=== PATIENT | female | born 1970 | race Caucasian/White ===

== ENCOUNTER 2021-06-06 14:32 | Emergency (ER) | payer BC ==
[~2021-06-06] VITALS: Ht 172.7 cm; Wt 109.8 kg
[2021-06-06 15:14] LABS: APPEARANCE,URINE Clear (CLEAR); BILIRUBIN,URINE Negative (NEGATIVE); COLOR,URINE Yellow (YELLOW); GLUCOSE, URINE (UA) >=1000 mg/dL (NEGATIVE); KETONES,URINE Negative (NEGATIVE); LEUKOCYTE ESTERASE ,URINE Small (NEGATIVE); NITRATE,URINE Negative (NEGATIVE); OCCULT BLOOD,URINE Negative (NEGATIVE); PROTEIN,URINE Negative (NEGATIVE); UROBILINOGEN,URINE 0.2 mg/dL (0.2-1.0)
[2021-06-06 15:29] LABS: RBC,URINE 0-1 /HPF (0-1)
[2021-06-06 15:30] LABS: BACTERIA,URINE Few /HPF (None Seen); SQUAMOUS EPITHELIAL CELL,UR Few /HPF (0-2); TRANSITIONAL EPI CELLS,URINE Rare /HPF (None Seen)
[2021-06-06 15:32] LABS: MUCUS,URINE Rare LPF (None Seen)
[2021-06-06 15:38] LABS: CREATININE 1.2 mg/dL (0.5-1.5); POTASSIUM 3.7 mmol/L (3.5-5.1)
[2021-06-06 15:46] LABS: ALBUMIN 4.1 g/dL (3.5-5.0); BILIRUBIN,TOTAL 0.7 mg/dL (0.2-1.0); TOTAL PROTEIN, SERUM 8.1 g/dL (6.0-8.3)
[2021-06-06 16:28] LABS: BASOPHILS % (AUTO) 0.8 % (0.0-5.0); LYMPHOCYTES % (AUTO) 22.3 % (21.0-51.0); MEAN CORPUSCULAR HEMOGLOBIN 23.9 pg (27.0-33.0); MEAN CORPUSCULAR HGB CONC 30.3 g/dL (32.0-36.0); MEAN CORPUSCULAR VOLUME 79.2 fL (79-99); NEUTROPHILS % (AUTO) 70.6 % (40.0-77.0); PLATELET COUNT (AUTO) 597 K/uL (130-400); RED BLOOD CELL COUNT(AUTO) 5.47 MIL/uL (4.00-5.50); WHITE BLOOD COUNT (AUTO) 14.5 K/uL (4.8-10.8)
[2021-06-06] MEDS ORDERED: 0.9%NACL 1000ML 1,000 ML IV ONE (17:00)
[2021-06-06 18:09] VITALS: BP 126/66
== END 2021-06-06 18:10 | disposition home or self-care (01) ==
LOC: EDH 14:32
DX: E11.65 Type 2 diabetes mellitus with hyperglycemia (principal); E86.0 Dehydration; R07.89 Other chest pain; R06.02 Shortness of breath; Z20.822 Contact with and (suspected) exposure to COVID-19; Z98.890 Other specified postprocedural states
CPT/HCPCS: 36415; 71045; 80053; 81001; 84484; 85025; 87088; 87635; 93005; 99284; C9803

== ENCOUNTER 2022-06-30 07:24 | Emergency (ER) | payer BC, OTHER ==
[~2022-06-30] VITALS: Ht 172.7 cm; Wt 112.5 kg
[2022-06-30] MEDS ORDERED: ONDANSETRON 4MG INJ IVP ONE (08:00)
[2022-06-30] MEDS ORDERED: KETOROLAC 30MG VIAL (30MG/ML) IVP ONE (08:00)
[2022-06-30 08:06] VITALS: BP 165/71
[2022-06-30 08:22] LABS: CREATININE 1.3 mg/dL (0.5-1.5); POTASSIUM 4.9 mmol/L (3.5-5.1)
[2022-06-30 08:24] LABS: BASOPHILS % (AUTO) 0.7 % (0.0-5.0); EOSINOPHILS % (AUTO) 2.9 % (0.0-8.0); HEMATOCRIT 38.1 % (36-48); LYMPHOCYTES % (AUTO) 29.4 % (21.0-51.0); MEAN CORPUSCULAR HGB CONC 31.5 g/dL (32.0-36.0); MEAN CORPUSCULAR VOLUME 82.5 fL (79-99); NEUTROPHILS % (AUTO) 61.5 % (40.0-77.0); PLATELET COUNT (AUTO) 375 K/uL (130-400); RED BLOOD CELL COUNT(AUTO) 4.62 MIL/uL (4.00-5.50); RED CELL DISTRIBUTION WIDTH 14.6 % (11.0-15.5); WHITE BLOOD COUNT (AUTO) 12.1 K/uL (4.8-10.8)
[2022-06-30 08:27] LABS: ALBUMIN 3.7 g/dL (3.5-5.0); TOTAL PROTEIN, SERUM 7.2 g/dL (6.0-8.3)
[2022-06-30] MEDS ORDERED: OMEP40CA21 PO (09:34)
[2022-06-30] MEDS ORDERED: ONDA-104 PO (09:34)
[2022-06-30] MEDS ORDERED: IBUP-1493 PO (09:34)
== END 2022-06-30 09:59 | disposition home or self-care (01) ==
LOC: EDH 07:24
DX: S09.90XA Unspecified injury of head, initial encounter (principal); K80.20 Calculus of gallbladder without cholecystitis without obstruction; R11.0 Nausea; I10 Essential (primary) hypertension; E78.00 Pure hypercholesterolemia, unspecified; E10.8 Type 1 diabetes mellitus with unspecified complications; Z90.89 Acquired absence of other organs; W01.0XXA Fall on same level from slipping, tripping and stumbling without subsequent striking against object, initial encounter; Y93.89 Activity, other specified; Y92.89 Other specified places as the place of occurrence of the external cause; Y99.8 Other external cause status
CPT/HCPCS: 99285; 70450; 96374; 76705; 71045; 96375; 84484; 80053; 85025; 36415; 72125; 93005; J2405; J1885

== ENCOUNTER 2022-09-16 06:53 | Day surgery (SDC) | payer OTHER ==
[2022-09-12 10:19] LABS: BASOPHILS % (AUTO) 0.6 % (0.0-5.0); EOSINOPHILS % (AUTO) 2.9 % (0.0-8.0); HEMATOCRIT 40.3 % (36-48); LYMPHOCYTES % (AUTO) 27.2 % (21.0-51.0); MEAN CORPUSCULAR HEMOGLOBIN 25.7 pg (27.0-33.0); MEAN CORPUSCULAR VOLUME 82.8 fL (79-99); MONOCYTES % (AUTO) 5.9 % (3.0-13.0); PLATELET COUNT (AUTO) 425 K/uL (130-400); RED BLOOD CELL COUNT(AUTO) 4.87 MIL/uL (4.00-5.50); RED CELL DISTRIBUTION WIDTH 13.8 % (11.0-15.5)
[2022-09-12 10:55] VITALS: BP 125/66
[2022-09-16] VITALS (21 sets, daily range): BP systolic 14–153; BP diastolic 58–81
[~2022-09-16] VITALS: Ht 177.8 cm; Wt 113.1 kg
[~2022-09-16 06:53] MED LIST: ALBOZ PO; ASPI-1443 PO; ATEN25TA PO; ATOR20TA65 PO; DULO60CA64 PO; GLIP5TAB11 PO; INSU100V12 SQ; LEVO100C4 PO; LOSA50TA64 PO; MAGN400C PO; METF-446 PO; PREG75CA75 PO; VITAMIN B12 PO; VITAMIN D PO
[2022-09-16] MEDS ORDERED: CEFAZOLIN SODIUM 1 GM VIAL ONE (07:04)
[2022-09-16] MEDS ORDERED: 0.9%NACL 1000ML 1,000 ML IV ONE (07:04)
[2022-09-16] MEDS ORDERED: PROPOFOL 10 MG/ML 20ML VIAL IV ONE ×2 (07:19→07:44)
[2022-09-16] MEDS ORDERED: GLYCOPYRROLATE 1 MG/5 ML SYRINGE ONE (07:19)
[2022-09-16] MEDS ORDERED: SUCCINYLCHOLINE 200MG/10ML SYR ONE ×2 (07:19→08:45)
[2022-09-16] MEDS ORDERED: LIDOCAINE PF 100MG/5ML (2%) SYRINGE 5ML ONE (07:19)
[2022-09-16] MEDS ORDERED: DEXAMETHASONE SOD PHOSPHATE 10MG/ML 1ML VIAL ONE (07:19)
[2022-09-16] MEDS ORDERED: ROCURONIUM 10MG/1ML SYR 10 MG/ML ML ONE ×2 (07:20→08:45)
[2022-09-16] MEDS ORDERED: MIDAZOLAM HCL 1 MG/ML 2ML VIAL ONE (07:20)
[2022-09-16] MEDS ORDERED: ONDANSETRON 4MG INJ ONE ×3 (07:20→10:29)
[2022-09-16] MEDS ORDERED: FENTANYL CITRATE PF 50 MCG/1 ML 2ML VIAL ONE ×2 (07:20→09:06)
[2022-09-16] MEDS ORDERED: NEOSTIGMINE 5MG/5ML SYR IV ONE (07:20)
[2022-09-16] MEDS ORDERED: BUPIVACAINE/PF 0.5% 10ML VIAL ONE (07:39)
[2022-09-16] MEDS ORDERED: BUPIVACAINE/PF 0.5% 30ML VIAL ONE (07:39)
[2022-09-16] MEDS ORDERED: INDOCYANINE GREEN 25 MG VIAL IJ ONE (08:17)
[2022-09-16] MEDS ORDERED: CEFAZOLIN SODIUM 3 GM VIAL IVPB ONE (08:41)
[2022-09-16] MEDS ORDERED: BUPIVACAINE/PF 0.5% 30ML VIAL INJ ONE (08:43)
[2022-09-16] MEDS ORDERED: METOPROLOL TARTRATE 1 MG/ML 5ML VIAL IV ONE (09:11)
[2022-09-16] MEDS ORDERED: ESMOLOL HCL 10 MG/ML 10 ML VIAL ONE (09:11)
[2022-09-16] MEDS ORDERED: SUGAMMADEX SODIUM 200 MG/2 ML VIAL IV ONE (09:26)
[2022-09-16] MEDS ORDERED: MEPERIDINE-PF 25 MG/ML SYG ONE ×2 (10:29→10:36)
[2022-09-16] MEDS ORDERED: KETOROLAC 30MG VIAL (30MG/ML) ONE (10:30)
[2022-09-16] MEDS ORDERED: IBUPROFEN 800 MG TAB ONE (11:42)
== END 2022-09-16 13:05 | disposition home or self-care (01) ==
LOC: DAH 06:53
PROVIDERS: ATTEND Surgery
DX: K80.10 Calculus of gallbladder with chronic cholecystitis without obstruction (principal); Z20.822 Contact with and (suspected) exposure to COVID-19; K82.8 Other specified diseases of gallbladder; I10 Essential (primary) hypertension; E11.9 Type 2 diabetes mellitus without complications; E89.0 Postprocedural hypothyroidism; Z98.890 Other specified postprocedural states; Z82.49 Family history of ischemic heart disease and other diseases of the circulatory system; Z83.3 Family history of diabetes mellitus; Z80.9 Family history of malignant neoplasm, unspecified; Z88.8 Allergy status to other drugs, medicaments and biological substances
CPT/HCPCS: 47562; S2900; 36415; 82948; 84703; 85025; 87426; 93005; J0330; J0690; J1100; J1885; J2001; J2175; J2250; J2405; J2704; J2710; J3010; J3490; J7030

== ENCOUNTER 2022-12-31 15:21 | Observation (INO) | payer OTHER ==
[~2022-12-31] VITALS: Ht 172.7 cm; Wt 106.6 kg
[2022-12-31 16:57] LABS: BASOPHILS # (AUTO) 0.08 K/uL (0.00-0.20); BASOPHILS % (AUTO) 0.8 % (0.0-5.0); EOSINOPHILS # (AUTO) 0.31 K/uL (0.00-0.70); EOSINOPHILS % (AUTO) 3.1 % (0.0-8.0); HEMATOCRIT 36.6 % (36-48); IMMATURE GRANULOCYTE ABSOLUTE 0.06 K/uL (0-1); LYMPHOCYTES # (AUTO) 2.7 K/uL (1.0-4.8); LYMPHOCYTES % (AUTO) 27.4 % (21.0-51.0); MEAN CORPUSCULAR HEMOGLOBIN 25.4 pg (27.0-33.0); MEAN CORPUSCULAR HGB CONC 30.9 g/dL (32.0-36.0); MEAN CORPUSCULAR VOLUME 82.2 fL (79-99); MONOCYTES # (AUTO) 0.5 K/uL (0.1-1.0); MONOCYTES % (AUTO) 5.2 % (3.0-13.0); NEUTROPHILS # (AUTO) 6.2 K/uL (1.8-7.7); NEUTROPHILS % (AUTO) 62.9 % (40.0-77.0); PLATELET COUNT (AUTO) 341 K/uL (130-400); RED BLOOD CELL COUNT(AUTO) 4.45 MIL/uL (4.00-5.50); RED CELL DISTRIBUTION WIDTH 14.4 % (11.0-15.5); WHITE BLOOD COUNT (AUTO) 9.9 K/uL (4.8-10.8)
[2022-12-31 16:59] LABS: APPEARANCE,URINE CLEAR (CLEAR); BILIRUBIN,URINE NEGATIVE (NEGATIVE); COLOR,URINE YELLOW (YELLOW); GLUCOSE, URINE (UA) 50 mg/dL (NEGATIVE); KETONES,URINE NEGATIVE (NEGATIVE); LEUKOCYTE ESTERASE ,URINE 250 Leu/uL (NEGATIVE); NITRATE,URINE NEGATIVE (NEGATIVE); OCCULT BLOOD,URINE NEGATIVE (NEGATIVE); PROTEIN,URINE NEGATIVE (NEGATIVE); UROBILINOGEN,URINE 0.2 mg/dL (0.2-1.0)
[2022-12-31 17:00] LABS: ADD UA MICROSCOPIC YES
[2022-12-31 17:01] LABS: SQUAMOUS EPITHELIAL CELL,UR RARE /HPF (0-2)
[2022-12-31 17:07] LABS: CREATININE 0.9 mg/dL (0.5-1.5); POTASSIUM 4.1 mmol/L (3.5-5.1)
[2022-12-31 17:11] LABS: ALBUMIN 3.5 g/dL (3.5-5.0); BILIRUBIN,TOTAL 0.6 mg/dL (0.2-1.0); TOTAL PROTEIN, SERUM 7.2 g/dL (6.0-8.3)
[2022-12-31] MEDS ORDERED: ACETAMINOPHEN 325 MG TAB PO PRN ×2 (21:00)
[2022-12-31] MEDS ORDERED: GLUCAGON 1MG KIT 1 MG ML IM PRN (21:00)
[2022-12-31] MEDS: INSULIN HUMULIN R 100 UNIT/ML 3ML SQ SCH (21:00)
[2022-12-31] MEDS ORDERED: ONDANSETRON 4MG INJ IV PRN (21:00)
[2022-12-31] MEDS ORDERED: DEXTROSE 50%-WATER 50 ML DISP.SYRIN IV PRN (21:00)
[2022-12-31] MEDS: NITROGLYCERIN 1GM OINT 1 INCH/1GM TD SCH (21:26)
[2022-12-31] MEDS: FAMOTIDINE 20MG TAB PO SCH (21:26)
[2023-01-01] MEDS: NITROGLYCERIN 1GM OINT 1 INCH/1GM TD SCH (05:10)
[2023-01-01 05:51] LABS: MEAN CORPUSCULAR HEMOGLOBIN 25.1 pg (27.0-33.0); MEAN CORPUSCULAR HGB CONC 31.2 g/dL (32.0-36.0); MEAN CORPUSCULAR VOLUME 80.5 fL (79-99); RED BLOOD CELL COUNT(AUTO) 4.1 MIL/uL (4.00-5.50); RED CELL DISTRIBUTION WIDTH 14.6 % (11.0-15.5); WHITE BLOOD COUNT (AUTO) 12.5 K/uL (4.8-10.8)
[2023-01-01 06:31] LABS: ALBUMIN 3.2 g/dL (3.5-5.0); BILIRUBIN,TOTAL 0.8 mg/dL (0.2-1.0); THYROID STIMULATING HORMONE 13.45 uIU/mL (0.36-3.74); TOTAL PROTEIN, SERUM 6.6 g/dL (6.0-8.3)
[2023-01-01] MEDS: INSULIN HUMULIN R 100 UNIT/ML 3ML SQ SCH ×2 (07:30→12:56)
[2023-01-01] MEDS ORDERED: ASPIRIN 81MG CHEW TAB PO SCH (09:00)
[2023-01-01] MEDS: FAMOTIDINE 20MG TAB PO SCH (09:07)
[2023-01-01] MEDS ORDERED: ACETAMINOPHEN WITH CODEINE 1 TAB TAB PO ONE (09:30)
[2023-01-01] MEDS ORDERED: CEFTRIAXONE 2GM VIAL IVPB SCH (10:00)
[2023-01-01 10:17] LABS: HEMOGLOBIN A1C 8.4 % (4.0-6.0)
[2023-01-01] MEDS ORDERED: AMOX1TAB16 PO (11:55)
[2023-01-01] MEDS ORDERED: ISOS30TA92 PO (11:55)
[2023-01-01 11:57] LABS: INR < 0.93 (0.85-1.15); PROTHROMBIN TIME 10.8 SEC (9.6-11.6)
[2023-01-01 11:59] LABS: PARTIAL THROMBOPLASTIN TIME 28.5 SEC (26.3-35.5)
[2023-01-01] MEDS ORDERED: FAMOTIDINE 20MG TAB PO ONE (12:00)
[2023-01-01] MEDS: LORATADINE 10 MG TABLET PO ONE ×2 (13:02→13:07)
[2023-01-01 13:07] VITALS: BP 138/88; PULSE 87; RESP 18; O2SAT 98
== END 2023-01-01 13:14 | disposition home or self-care (01) ==
LOC: EDH 15:21 → EDHIP 20:48
PROVIDERS: ADMIT Hospitalist; ATTEND Hospitalist
DX: I20.0 Unstable angina (principal); E11.9 Type 2 diabetes mellitus without complications; I10 Essential (primary) hypertension; E66.9 Obesity, unspecified; R79.89 Other specified abnormal findings of blood chemistry; I48.91 Unspecified atrial fibrillation; E78.00 Pure hypercholesterolemia, unspecified; E89.0 Postprocedural hypothyroidism; H91.90 Unspecified hearing loss, unspecified ear; N39.0 Urinary tract infection, site not specified; Z68.35 Body mass index [BMI] 35.0-35.9, adult; Z79.899 Other long term (current) drug therapy
CPT/HCPCS: 99285; 84484 ×3; 80053 ×2; 83880; 85025; 87077; 87088; 87186; 82948 ×3; 81001; 36415 ×2; 71045; 93005; 96372; 96365; 83036; 84443; 80061; 85027; 85610; 85730; 84439; 84481; 93306; 93356; G0378 ×15; J0696; J1815

== ENCOUNTER → 2023-01-16 | Outpatient (CLI) | payer OTHER ==
[~2023-01-16] MED LIST changes: +AMOX1TAB16 PO; +ISOS30TA92 PO
== END | disposition home or self-care (01) ==
LOC: RAH 11:19
PROVIDERS: ATTEND Internal Medicine Cardiovascular Disease
DX: Z13.6 Encounter for screening for cardiovascular disorders (principal); R93.1 Abnormal findings on diagnostic imaging of heart and coronary circulation
CPT/HCPCS: 75571

== ENCOUNTER 2023-02-07 05:48 | Day surgery (SDC) | payer OTHER ==
[2023-02-05 12:07] LABS: APPEARANCE,URINE CLEAR (CLEAR); BILIRUBIN,URINE NEGATIVE (NEGATIVE); COLOR,URINE YELLOW (YELLOW); GLUCOSE, URINE (UA) 500 mg/dL (NEGATIVE); KETONES,URINE 5 mg/dL (NEGATIVE); LEUKOCYTE ESTERASE ,URINE 25 Leu/uL (NEGATIVE); NITRATE,URINE NEGATIVE (NEGATIVE); OCCULT BLOOD,URINE NEGATIVE (NEGATIVE); PH,URINE 5.5 (5.0-8.0); PROTEIN,URINE 10 mg/dL (NEGATIVE); UROBILINOGEN,URINE 0.2 mg/dL (0.2-1.0)
[2023-02-05 12:09] LABS: BASOPHILS # (AUTO) 0.05 K/uL (0.00-0.20); BASOPHILS % (AUTO) 0.6 % (0.0-5.0); EOSINOPHILS % (AUTO) 2.5 % (0.0-8.0); HEMATOCRIT 37.8 % (36-48); IMMATURE GRANULOCYTE ABSOLUTE 0.05 K/uL (0-1); LYMPHOCYTES # (AUTO) 1.7 K/uL (1.0-4.8); LYMPHOCYTES % (AUTO) 20.7 % (21.0-51.0); MEAN CORPUSCULAR HEMOGLOBIN 25.4 pg (27.0-33.0); MEAN CORPUSCULAR HGB CONC 31.2 g/dL (32.0-36.0); MEAN CORPUSCULAR VOLUME 81.3 fL (79-99); MONOCYTES # (AUTO) 0.6 K/uL (0.1-1.0); MONOCYTES % (AUTO) 6.9 % (3.0-13.0); NEUTROPHILS # (AUTO) 5.5 K/uL (1.8-7.7); NEUTROPHILS % (AUTO) 68.7 % (40.0-77.0); PLATELET COUNT (AUTO) 339 K/uL (130-400); RED BLOOD CELL COUNT(AUTO) 4.65 MIL/uL (4.00-5.50); RED CELL DISTRIBUTION WIDTH 14.8 % (11.0-15.5)
[2023-02-05 12:10] LABS: ADD UA MICROSCOPIC YES
[2023-02-05 12:19] LABS: RBC,URINE 0-1 /HPF (0-1); SQUAMOUS EPITHELIAL CELL,UR RARE /HPF (0-2)
[2023-02-05 12:22] LABS: POTASSIUM 4.7 mmol/L (3.5-5.1)
[2023-02-05 12:24] LABS: INR < 0.93 (0.85-1.15); PROTHROMBIN TIME 10.2 SEC (9.6-11.6)
[2023-02-05 12:26] LABS: PARTIAL THROMBOPLASTIN TIME 29.9 SEC (26.3-35.5)
[2023-02-05 12:58] LABS: B-TYPE NATRIURETIC PEPTIDE 69 pg/mL (0-100)
[2023-02-05 16:03] VITALS: BP 143/64; PULSE 69; RESP 18
[~2023-02-07] VITALS: Ht 172.7 cm; Wt 115.7 kg
[2023-02-07] VITALS (11 sets, daily range): BP systolic 117–145; BP diastolic 53–74; PULSE 54–65; RESP 10–19
[~2023-02-07 05:48] MED LIST changes: -AMOX1TAB16 PO; +BACL10TA PO; +BUDE10.22 IH; -DULO60CA64 PO; -GLIP5TAB11 PO; +GLIP5TAB15 PO; -ISOS30TA92 PO; +PREG75 PO; -PREG75CA75 PO; +PREG75CA76 PO
[2023-02-07] MEDS ORDERED: 0.9%NACL 1000ML 1,000 ML IV ONE (06:25)
[2023-02-07] MEDS ORDERED: LIDOCAINE HCL 400MG/20ML VIAL ONE (07:11)
[2023-02-07] MEDS ORDERED: IOHEXOL 350 MG/ML 100ML INFUS..BTL IV ONE (07:11)
[2023-02-07] MEDS ORDERED: SODIUM BICARB 50MEQ 50ML VIAL 50 ML ONE (07:11)
[2023-02-07] MEDS ORDERED: HEPARIN 10,000 UNIT/10ML (1,000 UNIT/ML) VIAL ONE (07:30)
[2023-02-07] MEDS ORDERED: BIVALIRUDIN 250 MG/VIAL IV ONE (07:30)
[2023-02-07] MEDS ORDERED: FENTANYL CITRATE PF 50 MCG/1 ML 2ML VIAL ONE (07:43)
[2023-02-07] MEDS ORDERED: MIDAZOLAM HCL 1 MG/ML 2ML VIAL ONE (07:43)
[2023-02-07] MEDS ORDERED: IOHEXOL-350 75 ML VIAL IV ONE (07:54)
[2023-02-07] MEDS ORDERED: 0.9%NACL 1000ML 1,000 ML IV SCH (08:30)
== END 2023-02-07 12:30 | disposition home or self-care (01) ==
LOC: DAH 05:48
PROVIDERS: ATTEND Internal Medicine Cardiovascular Disease
DX: I25.119 Atherosclerotic heart disease of native coronary artery with unspecified angina pectoris (principal); I48.0 Paroxysmal atrial fibrillation; I10 Essential (primary) hypertension; E11.9 Type 2 diabetes mellitus without complications; E66.9 Obesity, unspecified; Z79.01 Long term (current) use of anticoagulants; Z79.899 Other long term (current) drug therapy; Z98.890 Other specified postprocedural states; Z79.82 Long term (current) use of aspirin; Z79.4 Long term (current) use of insulin; Z90.49 Acquired absence of other specified parts of digestive tract; Z68.37 Body mass index [BMI] 37.0-37.9, adult
CPT/HCPCS: 80048; 83880; 85025; 85610; 85730; 81001; 36415; 71045; 93005; 93458; 82948 ×2; C1894 ×2; C1760; J3010; J3490 ×2; J7030; J2250; J1644; Q9967 ×2; A4215; A4335; A4222; A4221; A4663; A4216; A4606; Q9965; A4223 ×3; A4554; 96360; 96361; 99156; 99157; J0583

== ENCOUNTER 2024-05-14 15:53 | Emergency (ER) | payer MEDICAID, OTHER ==
[~2024-05-14] VITALS: Ht 172.7 cm; Wt 117.9 kg
[~2024-05-14 15:53] MED LIST changes: -PREG75 PO
[2024-05-14] MEDS: OXYmetazolone HCL SPRAY 15 ML BOTTLE ONE (16:04)
[2024-05-14] MEDS: OXYmetazolone HCL SPRAY 15 ML BOTTLE EN SCH (16:05)
[2024-05-14] MEDS ORDERED: LORA10TA7 PO (16:14)
[2024-05-14] MEDS ORDERED: FLUT16H NS (16:14)
[2024-05-14] MEDS ORDERED: AMOX500C2 PO (16:14)
--- NOTE | 2024-05-14 16:14 | ERN ---
General Chief Complaint: Nosebleed Stated Complaint: NOSE BLEED Time Seen by MD: 15:55 Source: patient History of Present Illness Initial Comments IN HIS IS A 54-YEAR-OLD FEMALE COMING IN DUE TO EPISTAXIS. PER PATIENT SHE HAS HAD SEVERAL SURGICAL PROCEDURES OF THE NOSE WHICH INCLUDE CAUTERIZATION OF THE NASAL TISSUE DUE TO AN INFECTION. SHE STATES THAT THE BLEEDING STARTED EARLIER TODAY UPON EVALUATION IN TRIAGE BLEEDING HAS STOPPED. LONG WITH THIS PATIENT STATES HE HAS HAD SOME FACIAL TENDERNESS. Allergies: Coded Allergies: azithromycin (Unverified Allergy, Unknown, 09/12/22) canagliflozin (Unverified Allergy, Unknown, 09/12/22) rofecoxib (Unverified Allergy, Unknown, 09/12/22) Uncoded Allergies: METALS (Allergy, Unknown, 09/12/22) Home Meds Reported Medications Budesonide/Formoterol Fumarate (Symbicort 80-4.5 Mcg Inhaler) 80 Mcg-4.5 Mcg/Actuation Inhr, 2 PUFF IH BID PRN for asthma 02/05/23 Baclofen (Baclofen) 10 Mg Tablet, 10 MG PO BID, TAB 02/05/23 [Vitamin B12] No Conflict Check, 100 MCG PO AM 09/12/22 [Alboz] No Conflict Check, 20 MG PO HS 09/12/22 Magnesium Oxide (Magnesium) 400 Mg Magnesium Capsule, 400 MG PO AM, CAP 09/12/22 Aspirin (Aspirin EC) 81 Mg Tablet.dr, 81 MG PO AM, TAB 09/12/22 [Vitamin D] No Conflict Check, 2000 MG PO AM 09/12/22 Pregabalin (Pregabalin) 75 Mg Capsule, 75 MG PO BID, CAP 09/12/22 Atorvastatin Calcium (Atorvastatin Calcium) 20 Mg Tablet, 20 MG PO HS, TAB 09/12/22 Levothyroxine Sodium (Levothyroxine) 100 Mcg Capsule, 100 MCG PO HS, CAP 09/12/22 Atenolol (Atenolol) 25 Mg Tablet, 25 MG PO HS, TAB 09/12/22 Losartan Potassium (Losartan Potassium) 50 Mg Tablet, 50 MG PO HS, TAB 09/12/22 Glipizide (Glipizide) 5 Mg Tablet, 5 MG PO BID, TAB 09/12/22 Insulin Detemir (Levemir) 100 Unit/Ml Vial, 40 UNIT SQ AM, VIAL 09/12/22 Metformin HCl (Metformin HCl) 1,000 Mg Tablet, 1000 MG PO BID, TAB RESUME METFORMIN 02/08/23 09/12/22 Past Medical History Past Medical History: A-Fib, Diabetes-Type II, High Cholesterol, Heart Disease, Hypertension Medical History Other: HEARING IMPAIRED, THYROIDECTOMY Past Surgical History: Cholecystectomy, Other Surgical History Other: THYROIDECTOMY, RIGHT KNEE SURGERY Family History Family History: Negative Social History Social History: Negative, Lives with family Female( History) History: Not Applicable ROS Dictation CONSTITUTIONAL: NO CHILLS, NO FEVER, NO WEAKNESS, NO DIAPHORESIS, NO MALAISE. HEAD/FACE: NO SIGNS OF TRAUMA. EENT: NO EYE PAIN, NO BLURRED VISION, NO TEARING, NO DOUBLE VISION, NO EAR PAIN, NO EAR DISCHARGE, NO NOSE PAIN, NASAL CONGESTION, NO THROAT PAIN, NO THROAT SWELLING, NO MOUTH PAIN. RESPIRATORY: NO COUGH, NO ORTHOPNEA, NO SOB, NO STRIDOR, NO WHEEZING. CARDIOVASCULAR: NO CHEST PAIN, NO EDEMA, NO PALPITATIONS, NO SYNCOPE. GASTROINTESTINAL/ABDOMINAL: NO ABDOMINAL PAIN, NO CONSTIPATION, NO DIARRHEA, NO NAUSEA, NO VOMITING. GENITOURINARY: NO ABNORMAL DISCHARGE, NO DYSURIA, NO FREQUENT URINATION, NO HEMATURIA. NO COMPLAINTS OF PAIN IN THE GENITALS. MUSCULOSKELETAL: NO BACK PAIN, NO GOUT, NO JOINT PAIN, NO JOINT SWELLING, NO MUSCLE PAIN, NO MUSCLE STIFFNESS, NO NECK PAIN. INTEGUMENTARY: NO CHANGE IN COLOR, NO CHANGE IN HAIR/NAILS, NO DRYNESS, NO LESION, NO LUMPS, NO RASH. NEUROLOGICAL/PSYCH: NO ANXIETY, NOT DEPRESSED, NO EMOTIONAL PROBLEM, NO HEADACHE, NO NUMBNESS, NO PRE-EXISTING DEFICIT, NO HISTORY OF SEIZURES, NO TREMORS, NO WEAKNESS. HEMATOLOGIC/LYMPHATIC: NOT ANEMIC, NO HISTORY OF BLOOD CLOTS, NO APPARENT BLE EDING, NO BRUISING, GLANDS NOT SWOLLEN. ALL SYSTEMS NEGATIVE, EXCEPT NOTED. Physical Exam Physical Exam Dictation VITAL SIGNS: REVIEWED. GENERAL APPEARANCE: ALERT, ORIENTED X3, NO ACUTE DISTRESS, OBESE. HEAD AND FACE: NON-TRAUMATIC. EYES: PERRL, PINK CONJUNCTIVAS, EYELID NO TRAUMA, ANTERIOR CHAMBER CLEAR. EARS: PINNAS INTACT AND NO SIGNS OF TRAUMA OR ERYTHEMA. EAR CANALS CLEAR AND NO DISCHARGE. TMS NO ERYTHEMA. NOSE: NO DISCHARGE, NO BLEEDING. DRIED BLOOD IN BOTH NARES OROPHARYNX: MOUTH NORMAL, TEETH NO CARIES, TONGUE PINK. PHARYNX CLEAR, NO ERYTHEMA. TONSILS NO EXUDATES, NO ABSCESSES NOTED. MUCOUS MEMBRANE MOIST. NECK: SUPPLE, NON-TENDER, NO THYROMEGALY, NO MASSES, NO JVD, NO BRUITS. BREAST: DEFERRED. CHEST: NO TENDERNESS, NO CREPITUS, NO PARADOXICAL MOVEMENT, NO RETRACTIONS. LUNGS: CLEAR, WELL-VENTILATED, SYMMETRIC, NO RALES, NO WHEEZING, NO RHONCHI, NO STRIDOR, GOOD BREATH SOUNDS BILATERALLY. HEART: REGULAR RATE, REGULAR RHYTHM, NO MURMUR, NO GALLOPS. VASCULAR: NO PERIPHERAL EDEMA. ABDOMEN: SOFT, POSITIVE BOWEL SOUNDS, NONDISTENDED, NO GUARDING, NONTENDER, NO REBOUND, NO MASSES NO HEPATOMEGALY, NO SPLENOMEGALY, NO FALK'S SIGN, NO HERNIAS. RECTAL: DEFERRED. GENITAL: DEFERRED. NEUROLOGICAL: NORMAL SPEECH, GROSS MOTOR FUNCTION INTACT, GROSS SENSORY FUNCTION INTACT. MUSCULOSKELETAL: NECK NONTENDER, FULL RANGE OF MOTION, BACK NONTENDER, FULL RANGE OF MOTION. EXTREMITIES: NONTENDER, FULL RANGE OF MOTION. SKIN: COLOR PINK, DRY, NO TURGOR, NO RASH, NO LACERATIONS, NO ABRASIONS, NO CONTUSIONS. LYMPHATICS: DEFERRED. Results Laboratory and Microbiology Labs Reviewed?: Yes MDM MDM: DIFFERENTIAL DIAGNOSIS: EPISTAXIS, URI, SINUSITIS PATIENT IS A 54-YEAR-OLD FEMALE COMING IN DUE TO EPISTAXIS. ON EVALUATION IN TRIAGE BLEEDING HAD STOPPED AFRIN WAS USED DILATED MOVED MUSCLE NO ACUTE BLEEDING NOTICED. PATIENT WILL BE DISCHARGED WITH A DIAGNOSIS OF EPISTAXIS WITH SINUSITIS. ED Course Orders Procedure Category Date Status Time Oxymetazolone Hcl PHA 05/14/24 Complete Funk (Afrin) 16:02 Oxymetazolone Hcl PHA 05/14/24 In Process Funk (Afrin) 16:30 Current Medications Medications (Trade) Dose Ordered Sig/Claire Route PRN Reason Start Time Stop Time Status Last Admin Dose Admin Oxymetazoline HCl (AFrin) 1 sprays ONCE EN 05/14/24 16:30 06/13/24 16:29 05/14/24 16:05 Oxymetazoline HCl (AFrin) 100 sprays STK-MED ONCE .ROUTE 05/14/24 16:02 05/14/24 16:03 DC Vital Signs Date Time Temp Pulse Resp B/P (MAP) Pulse Ox O2 Delivery O2 Flow Rate FiO2 05/14/24 15:57 98.2 78 16 153/96 98 Room Air* 0 21 DX & DISP Disposition: Discharge Departure Impression: Primary Impression: Epistaxis Additional Impression: Sinusitis Condition: Stable Scripts Loratadine (Loratadine) 10 Mg Tablet 1 TAB PO DAILY for allergy symptoms for 30 Days, #30 TAB 0 Refills Prov: MARZENA BEAL MD 05/14/24 Fluticasone Propionate (Flonase Nasal [place]) 50 Mcg/Actuation [place] 2 SPRAY NS DAILY, #16 GM 0 Refills Prov: MARZENA BEAL MD 05/14/24 Amoxicillin (Amoxicillin) 500 Mg Capsule 1 CAP PO TID for 10 Days, #30 CAP 0 Refills Prov: MARZENA BEAL MD 05/14/24 Additional Instructions: FOLLOW-UP WITH PRIMARY CARE PROVIDER IN 1 TO 2 DAYS. TAKE MEDICATIONS DIRECTED HERE IN THE EMERGENCY ROOM. OKAY TO CONTINUE HOME MEDICATIONS UNLESS OTHERWISE DISCUSSED DURING YOUR VISIT IN THE EMERGENCY ROOM TODAY. RETURN TO YOUR NEAREST EMERGENCY ROOM IF SYMPTOMS WORSEN OR IF THERE IS NO IMPROVEMENT. CALL 911 IF YOU NEED IMMEDIATE ASSISTANCE. TAKE TYLENOL [id number] NEEDED AND IF NO CONTRAINDICATIONS ARE PRESENT. INCREASE ORAL HYDRATION. A WOUND CULTURE OR URINE CULTURE WAS ORDERED HERE IN THE EMERGENCY ROOM DEPARTMENT PLEASE FOLLOW-UP WITH PRIMARY CARE PROVIDER AND ADVISE THEM TO GET REPEAT PORTS FROM OUR FACILITY. IF YOU HAD ANY [place] WRAP/SPLINTS THAT WERE APPLIED HERE, PL EASE DO NOT REMOVE THEM UNTIL YOU SEE YOUR PRIMARY CARE OR SPECIALTY. REFERRALS: Referrals: NICOLE NUNEZ M.D. (PCP) Time of Disposition: 16:13 MARZENA BEAL MD May 14, 2024 16:14
[2024-05-14 17:41] VITALS: BP 129/71; PULSE 74; RESP 15; TEMP 97.9; O2SAT 99
== END 2024-05-14 17:44 | disposition home or self-care (01) ==
LOC: EDH 15:53
DX: R04.0 Epistaxis (principal); J32.9 Chronic sinusitis, unspecified; E11.9 Type 2 diabetes mellitus without complications; E78.00 Pure hypercholesterolemia, unspecified; I11.9 Hypertensive heart disease without heart failure; Z79.51 Long term (current) use of inhaled steroids; Z79.84 Long term (current) use of oral hypoglycemic drugs; Z79.890 Hormone replacement therapy; Z79.899 Other long term (current) drug therapy; Z88.1 Allergy status to other antibiotic agents; Z90.49 Acquired absence of other specified parts of digestive tract; Z90.89 Acquired absence of other organs; Z98.890 Other specified postprocedural states
CPT/HCPCS: 99283

== ENCOUNTER 2025-01-19 14:10 | Emergency (ER) | payer BC, MEDICAID ==
[~2025-01-19] VITALS: Ht 172.7 cm; Wt 127.0 kg
[~2025-01-19 14:10] MED LIST changes: +AMOX500C2 PO; +FLUT16H NS; -LEVO100C4 PO; +LEVO100C5 PO; +LORA10TA7 PO
--- NOTE | 2025-01-19 14:27 | ERN ---
ED Note History of Present Illness Stated Complaint: HIP Chief Complaint: Hip Pain/Injury Time Seen by MD: 14:15 Dictation: PATIENT IS A 54-YEAR-OLD FEMALE COMING IN TODAY WITH SEVERE RIGHT LATERAL LUMBOSACRAL PAIN TENDERNESS SHE HAS HAD FOR TWO WEEKS. SHE DENIES ANY TRAUMA, NO FALLS NO CHANGE IN URINATION NO FEVER NO CHILLS OR NO PRIOR SURGERIES TO HER BACK. SHE HAS NO SCIATICA OR RADICULOPATHY. STATES SHE HAS NOT BEEN TO SEE HER DOCTOR IN HIS TAKEN ONLY [facility]ICK'[facility] PILLS [id number] FOR PAIN ON-CALL Allergies: Coded Allergies: azithromycin (Unverified Allergy, Unknown, 09/12/22) canagliflozin (Unverified Allergy, Unknown, 09/12/22) rofecoxib (Unverified Allergy, Unknown, 09/12/22) Uncoded Allergies: METALS (Allergy, Unknown, 09/12/22) Home Meds Active Scripts Loratadine (Loratadine) 10 Mg Tablet, 1 TAB PO DAILY for allergy symptoms for 30 Days, #30 TAB 0 Refills Prov:MARZENA BEAL MD 05/14/24 Fluticasone Propionate (Flonase Nasal [place]) 50 Mcg/Actuation [place], 2 SPRAY NS DAILY, #16 GM 0 Refills Prov:MARZENA BEAL MD 05/14/24 Amoxicillin (Amoxicillin) 500 Mg Capsule, 1 CAP PO TID for 10 Days, #30 CAP 0 Refills Prov:MARZENA BEAL MD 05/14/24 Reported Medications Budesonide/Formoterol Fumarate (Symbicort 80-4.5 Mcg Inhaler) 80 Mcg-4.5 Mcg/Actuation Inhr, 2 PUFF IH BID PRN for asthma 02/05/23 Baclofen (Baclofen) 10 Mg Tablet, 10 MG PO BID, TAB 02/05/23 [Vitamin B12] No Conflict Check, 100 MCG PO AM 09/12/22 [Alboz] No Conflict Check, 20 MG PO HS 09/12/22 Magnesium Oxide (Magnesium) 400 Mg Magnesium Capsule, 400 MG PO AM, CAP 09/12/22 Aspirin (Aspirin EC) 81 Mg Tablet.dr, 81 MG PO AM, TAB 09/12/22 [Vitamin D] No Conflict Check, 2000 MG PO AM 09/12/22 Pregabalin (Pregabalin) 75 Mg Capsule, 75 MG PO BID, CAP 09/12/22 Atorvastatin Calcium (Atorvastatin Calcium) 20 Mg Tablet, 20 MG PO HS, TAB 09/12/22 Levothyroxine Sodium (Levothyroxine) 100 Mcg Capsule, 100 MCG PO HS, CAP 09/12/22 Atenolol (Atenolol) 25 Mg Tablet, 25 MG PO HS, TAB 09/12/22 Losartan Potassium (Losartan Potassium) 50 Mg Tablet, 50 MG PO HS, TAB 09/12/22 Glipizide (Glipizide) 5 Mg Tablet, 5 MG PO BID, TAB 09/12/22 Insulin Detemir (Levemir) 100 Unit/Ml Vial, 40 UNIT SQ AM, VIAL 09/12/22 Metformin HCl (Metformin HCl) 1,000 Mg Tablet, 1000 MG PO BID, TAB RESUME METFORMIN 02/08/23 09/12/22 Past Medical History Past Medical History: Diabetes-Type II, Hypertension, Hypothyroid Additional Past Medical Hx: HEARING IMPAIRED, THYROIDECTOMY Surgical History: Cholecystectomy, Other Surgical History Other: THYROID REMOVAL, RT ANKLE SX, RT KNEE SX Family History: Negative Social History: Negative, Lives with family History: Not Applicable RN Note Reviewed/Agreed w/PFSH: Yes Review of System Dictation CONSTITUTIONAL: NEGATIVE EXCEPT FOR HPI HEAD/FACE: NEGATIVE EXCEPT FOR HPI EENT: NEGATIVE EXCEPT FOR HPI RESPIRATORY: NEGATIVE EXCEPT FOR HPI GASTROINTESTINAL/ABDOMINAL: NEGATIVE EXCEPT FOR HPI GENITOURINARY: NEGATIVE EXCEPT FOR HPI MUSCULOSKELETAL: NEGATIVE EXCEPT FOR HPI SEVERE RIGHT LATERAL LUMBOSACRAL PAIN TENDERNESS. INTEGUMENTARY: NEGATIVE EXCEPT FOR HPI NEUROLOGICAL/PSYCH: NEGATIVE EXCEPT FOR HPI HEMATOLOGIC/LYMPHATIC: NEGATIVE EXCEPT FOR HPI ALL SYSTEMS NEGATIVE, EXCEPT NOTED ABOVE. 13 POINT REVIEW OF SYSTEMS ASSESSED AND ALL NEGATIVE EXCEPT FOR ABOVE. Initial Vital Sign VS Vital Signs Date Time Temp Pulse Resp B/P (MAP) Pulse Ox O2 Delivery O2 Flow Rate FiO2 01/19/25 14:13 97.9 65 18 124/83 100 Room Air 0 Physical Exam Dictation VITAL SIGNS REVIEWED GENERAL APPEARANCE: ALERT, ORIENTED X 3, SEVERE ACUTE DISTRESS, WELL DEVELOPED, NOURISHED. OBESE HEAD AND FACE: NON-TRAUMATIC. EYES: PERRL, PINK CONJUNCTIVAS, EYELID NO TRAUMA, ANTERIOR CHAMBER WITH ARCUS SENILIS. EARS: PINNAS INTACT AND NO SIGNS OF TRAUMA OR ERYTHEMA EAR CANALS CLEAR AND NO DISCHARGE TM NO ERYTHEMA NOSE: NO DISCHARGE, NO BLEEDING. OROPHARYNX: MOUTH NORMAL, TONGUE PINK, PHARYNX CLEAR,NO ERYTHEMA, TONSILS NO EXUDATES, NO ABSCESSES NOTED, MUCOUS MEMBRANE MOIST NECK: SUPPLE, NON-TENDER, NO THYROMEGALY, NO MASSES, NO JVD, NO BRUITS BREAST:DEFERRED CHEST:NO TENDERNESS, NO CREPITUS, NO PARADOXICAL MOVEMENT, NO RETRACTIONS LUNGS:CLEAR, WELL-VENTILATED, SYMMETRIC, NO RALES, NO WHEEZING, NO RHONCHI, NO STRIDOR, GOOD BREATH SOUNDS BILATERALLY HEART: REGULAR RATE, REGULAR RHYTHM, NO MURMUR, NO GALLOPS VASCULAR: NO PERIPHERAL EDEMA, ABDOMEN: SOFT, POSITIVE BOWEL SOUNDS, NONDISTENDED, NO GUARDING, NONTENDER, NO REBOUND, NO MASSES NO HEPATOMEGALY, NO SPLENOMEGALY, NO FALK'S SIGN, NO HERNIAS. NEGATIVE CVAT BILATERALLY RECTAL: DEFERRED GENITAL: DEFERRED NEUROLOGICAL: NORMAL SPEECH, MOTOR FUNCTION INTACT, SENSORY FUNCTION INTACT MUSCULOSKELETAL: NECK NONTENDER, FULL RANGE OF MOTION, MODERATE RIGHT LATERAL LUMBOSACRAL TENDERNESS WITH PALPATION. NEGATIVE STRAIGHT LEG RAISE BILATERALLY 10 EXTREMITIES: NONTENDER, FULL RANGE OF MOTION SKIN: COLOR PINK, DRY, NO TURGOR, NO RASH, NO LACERATIONS, NO ABRASIONS, NO CONTUSIONS. LYMPHATIC: DEFERRED Results (Laboratory/Radiology) Laboratory/Radiology 1655/lumbar and sacral x-rays demonstrate degenerative changes. Labs Reviewed?: Yes ED Course ED Course Orders Procedure Category Date Status Time Lumbar Spine 2-3vws RAD 01/19/25 Taken 14:23 Sacrum/Coccyx 2+Vws RAD 01/19/25 Taken 14:23 Dexamethasone 4mg/Ml PHA 01/19/25 Complete 1ml Vial (Dexametha 14:30 Acetaminophen With PHA 01/19/25 Complete Codeine (Tylenol-Code 14:30 Cyclobenzaprine Hcl PHA 01/19/25 Complete (Cyclobenzaprine Hcl 14:30 Current Medications Medications (Trade) Dose Ordered Sig/Claire Route PRN Reason Start Time Stop Time Status Last Admin Dose Admin Acetaminophen/ Codeine Phosphate (TYLenol-coDEINE TAB) 2 tab ONCE ONCE PO 01/19/25 14:30 01/19/25 14:31 DC 01/19/25 16:01 Cyclobenzaprine HCl (Cyclobenzaprine HCl) 10 mg ONCE ONCE PO 01/19/25 14:30 01/19/25 14:31 DC 01/19/25 16:01 Dexamethasone Sodium Phosphate (dexaMETHasone 4MG/ML 1ML VIAL) 8 mg ONCE ONCE IM 01/19/25 14:30 01/19/25 14:26 DC Vital Signs Date Time Temp Pulse Resp B/P (MAP) Pulse Ox O2 Delivery O2 Flow Rate FiO2 01/19/25 14:13 97.9 65 18 124/83 100 Room Air 0 1655/patient states pain is mildly improved after treatment. She will be discharged home with Tylenol with codeine and Flexeril Told see her primary care doctor on next 1-2 days for management Medical Decision Making MDM Medical decision-making was based on empiric treatment for lumbosacral pain. X-rays done of lumbar and sacrum demonstrate degenerative changes only Patient will be discharged home with Tylenol with codeine and Flexeril Told follow up with her primary care doctor in [facility] in the next 1-2 days for management do not wait until February. DX & DISP Disposition: Discharge Departure Impression: Primary Impression: DJD (degenerative joint disease), lumbosacral Condition: Stable Scripts Cyclobenzaprine HCl (Cyclobenzaprine HCl) 10 Mg Tablet 1 TAB PO TID for muscle spasms for 10 Days, #30 TAB 0 Refills Prov: DMITRI TODD NP 01/19/25 Acetaminophen with Codeine (Acetaminophen-Cod #3 Tablet) 300 Mg-30 Mg Tablet 2 TAB PO Q6H PRN for Moderate to severe pain, #20 TAB 0 Refills Prov: DMITRI TODD NP 01/19/25 Additional Instructions: Follow-up with primary care provider in 1 to 2 days. Take medications as directed here in the emergency room. Okay to continue home medications unless otherwise discussed during your visit in the emergency room today. Return to your nearest emergency room if symptoms worsen or if there is no improvement. Call 911 if you need immediate assistance. Take Tylenol or Motrin over-the- counter as needed and if no contraindications are present. Increase oral hydration. A wound culture or urine culture was ordered here in the emergency room department please follow-up with primary care provider and advise them to get repeat ports from our facility. If you had any [place] wrap/splints that were applied here, please do not remove them until you see your primary care or specialty. Take Flexeril every8 hours with food for the next three days. Take Tylenol with codeine as needed for severe pain. Warm compresses to your back three to 4 times a day. See your primary care doctor in the next 1-2 days for follow up and management. Recommend MRI of your low back Referrals: NICOLE NUNEZ M.D. (PCP) Time of Disposition: 16:58 I have reviewed the case, and I agree with, Diagnosis and Plan DMITRI TODD NP Jan 19, 2025 14:27
--- NOTE | 2025-01-19 15:43 | NUR ---
PT MOVED FROM LOBBY INTO FAST TRACK. ASSUMED CARE AT THIS TIME
[2025-01-19] MEDS: CYCLOBENZAPRINE HCL 10 MG TABLET PO ONE (16:01)
[2025-01-19] MEDS ORDERED: CYCL-309 PO (16:59)
[2025-01-19] MEDS ORDERED: ACET-2079 PO (16:59)
--- NOTE | 2025-01-19 17:05 | HMCIMG ---
EXAM: CR Lumbar Spine, 3 View. CLINICAL HISTORY: RIGHT LATERAL LUMBAR PAIN NON TRAUMA TWO WEEKS COMPARISON: None provided. FINDINGS: BONES: No acute fracture or aggressive appearing osseous lesion. ALIGNMENT: Alignment is within normal limits. No significant scoliosis. DISCS / DEGENERATIVE CHANGES: Moderate diffuse degenerative changes SOFT TISSUES: The soft tissues are unremarkable. IMPRESSION: Moderate diffuse degenerative changes /[place]
[2025-01-19 17:06] VITALS: BP 121/85; PULSE 65; RESP 18; TEMP 97.9; O2SAT 100
--- NOTE | 2025-01-19 17:47 | HMCIMG ---
EXAM: CR Sacrum and Coccyx, 3 View. CLINICAL HISTORY: RIGHT LATERAL LUMBOSACRAL PAIN TWO WEEKS COMPARISON: None provided. FINDINGS: BONES: Generalized osteopenia No evidence of fracture SOFT TISSUES: The soft tissues are unremarkable. MISCELLANEOUS: Careful follow-up recommended if symptoms continue IMPRESSION: 1. Generalized osteopenia 2. No evidence of fracture 3. Careful follow-up recommended if symptoms continue /[place]
== END 2025-01-19 17:27 | disposition home or self-care (01) ==
LOC: EDH 14:10
DX: M47.817 Spondylosis without myelopathy or radiculopathy, lumbosacral region (principal); E03.9 Hypothyroidism, unspecified; E11.9 Type 2 diabetes mellitus without complications; I10 Essential (primary) hypertension; Z79.51 Long term (current) use of inhaled steroids; Z79.84 Long term (current) use of oral hypoglycemic drugs; Z79.890 Hormone replacement therapy; Z79.899 Other long term (current) drug therapy; Z88.1 Allergy status to other antibiotic agents; Z90.49 Acquired absence of other specified parts of digestive tract
CPT/HCPCS: 72100; 72220; 99283